=== PATIENT | male | born 1970 | race Caucasian/White ===

== ENCOUNTER 2017-06-12 21:49 | Emergency (ER) | payer OTHER ==
[2017-06-12 22:09] VITALS: TEMP 98.1
[2017-06-13 00:03] VITALS: RESP 16
[2017-06-13] MEDS ORDERED: DEXAMETHASONE SOD PHOSPHATE 10 MG/ML 1 ML VIAL IM STA (00:04)
[2017-06-13] MEDS ORDERED: ORPHENADRINE 30 MG/ML 2 ML VIAL IM STA (00:04)
[2017-06-13] MEDS ORDERED: HYDROmorphone 1 MG/ML 1 ML SYRINGE IM STA (00:04)
[2017-06-13 01:13] VITALS: BP 118/74; PULSE 71
--- NOTE | 2017-06-13 01:18 | ED ---
General Adult HPI - General Chief complaint: Headache Stated complaint: nerve pain Time Seen by Provider: 06/12/17 23:15 Source: patient Mode of arrival: ambulatory Limitations: no limitations - History of Present Illness Initial comments: This patient is a 46-year-old man who presents with complaint of radicular pain to both arms as well as headache. Patient states that these are both chronic problems but they have been flaring up worse than usual over the course of the past 1-2 weeks. The patient states that he has not been able to rest over the past 2-3 days due to the radicular arm pains. Patient relates that he had head injury seven years ago. Since that time he has had intermittent headaches. The patient has also had years of neck pain with radicular features. He most recently had an MRI in September. He subsequently had spinal injections and he states that he was better for a period of time. Beginning a month ago he had a recurrence of the radicular pain and that is gotten worse over the past 1-2 weeks. The pain is aching like a charley horse, constant, and severe. Certain positions make it worse. He has not found anything that helps. The patient has some tingling to the ulnar aspect of botht hands but no weakness. -: week(s) Location: upper extremity Quality: burning Consistency: constant Improves with: none Worsens with: movement Associated Symptoms: denies other symptoms - Related Data Home Medications Medication Instructions Recorded Confirmed Amitriptyline HCl [Elavil] 100 mg PO HS 03/11/14 01/15/16 Omeprazole [PriLOSEC] 1 cap PO AC-[id number] 03/14/14 01/15/16 Previous Rx's Medication Instructions Recorded Naproxen [Naprosyn] 500 mg PO Q12HR PRN #20 tab 01/15/16 Orphenadrine [Norflex] 100 mg PO Q12H PRN #15 tablet.er 01/15/16 traMADol HCl [Ultram] 50 mg PO Q4H PRN #15 tab 01/15/16 Methocarbamol [Robaxin-750] 750 mg PO TID PRN #30 tablet 06/13/17 predniSONE 60 mg PO DAILY #30 tab 06/13/17 Allergies Allergy/AdvReac Type Severity Reaction Status Date / Time No Known Allergies Allergy Verified 06/12/17 22:09 Review of Systems ROS Statement: Those systems with pertinent positive or pertinent negative responses have been documented in the HPI. ROS Other: All systems not noted in ROS Statement are negative. Constitutional: Denies: fever, chills, weakness Eyes: Denies: vision change Respiratory: Denies: cough, dyspnea Cardiovascular: Denies: chest pain Gastrointestinal: Denies: abdominal pain, vomiting Musculoskeletal: Denies: back pain Skin: Denies: rash, lesions Neurological: Reports: as per HPI, headache, paresthesias. Denies: weakness, numbness Past Medical History Additional Past Medical History / Comment(s): Blood in stool, nausea, loose stools, frequent emesis History of Any Multi-Drug Resistant Organisms: None Reported Past Surgical History: Orthopedic Surgery Additional Past Surgical History / Comment(s): ese knees arthroscopy, sinus sx Past Anesthesia/Blood Transfusion Reactions: No Reported Reaction Past Psychological History: Anxiety, PTSD Smoking Status: Never smoker Past Alcohol Use History: None Reported Past Drug Use History: None Reported General Exam Limitations: no limitations General appearance: alert, in no apparent distress Head exam: Present: atraumatic, normocephalic Eye exam: Present: normal appearance Neck exam: Present: normal inspection, full ROM. Absent: tenderness, meningismus Respiratory exam: Present: normal lung sounds bilaterally. Absent: respiratory distress, wheezes, rales, rhonchi, stridor Cardiovascular Exam: Present: regular rate, normal rhythm, normal heart sounds. Absent: systolic murmur, diastolic murmur, rubs, gallop Extremities exam: Present: normal inspection, normal capillary refill. Absent: pedal edema, calf tenderness Back exam: Present: normal inspection. Absent: vertebral tenderness Neurological exam: Present: alert, reflexes normal. Absent: motor sensory deficit Skin exam: Present: warm, dry, intact, normal color. Absent: rash Course Vital Signs 06/12/17 06/12/17 06/13/17 22:06 23:54 01:12 Temperature 98.1 F 98.1 F Pulse Rate 82 69 71 Respiratory 18 16 16 Rate Blood Pressure 117/67 117/63 118/74 O2 Sat by Pulse 95 99 95 Oximetry Medical Decision Making - Medical Decision Making Patient's 46-year-old man with history of chronic headaches and chronic radicular pain to the arm presents with exacerbation of the symptoms. He states he is mainly here about some pain relief so that he can get some sleep tonight. Patient is medicated and is feeling better. On the patient's exam there is no weakness. We discussed appropriate further care and follow-up, including return parameters. Discussed the patient probably needs repeat MRI as well as follow-up with the neurosurgeon and/or [employer]. Disposition Clinical Impression: Cervical radicular pain Disposition: HOME SELF-CARE Condition: Fair Instructions: Cervical Radiculopathy (ED) Prescriptions: Methocarbamol [Robaxin-750] 750 mg PO TID PRN #30 tablet PRN Reason: pain predniSONE 60 mg PO DAILY #30 tab Referrals: Javier Charlton DO [Primary Care Provider] - 1-2 days Seema Delgado DO [Doctor of Osteopathic Medicine] - 1-2 days Jack Navarro MD [STAFF PHYSICIAN] - 1-2 days
== END 2017-06-13 01:34 | disposition home or self-care (01) ==
LOC: EC 21:49
DX: M54.12 Radiculopathy, cervical region (principal); F41.9 Anxiety disorder, unspecified; M79.601 Pain in right arm; M79.602 Pain in left arm; Z79.899 Other long term (current) drug therapy
CPT/HCPCS: 99284; 96372 ×3; 93005; J1100; J2360; J1170

== ENCOUNTER → 2017-06-22 | Outpatient (CLI) | payer OTHER ==
--- NOTE | 2017-06-23 11:28 | MR ---
EXAMINATION TYPE: MR cervical spine wo con DATE OF EXAM: 06/22/2017 COMPARISON: 09/23/2016 HISTORY: Neck pain since 2010 TECHNIQUE: Multiplanar, multisequence images of the cervical spine were acquired. C2-C3: No evidence for degenerative disc disease. No disc bulge/herniation or protrusion. No Canal stenosis. Foramina are patent bilaterally. C3-C4: No evidence for degenerative disc disease. No disc bulge/herniation or protrusion. No Canal stenosis. Foramina are patent bilaterally. C4-C5: Uncovertebral joint hypertrophy on the left with mild left-sided foraminal encroachment. No Ca nal stenosis or disc herniation. C5-C6: Posterior circumferential disc bulging with mild effacement of thecal sac. Neural foramina rem ain patent. No Canal stenosis. No focal herniation. C6-C7: Bilateral uncovertebral joint hypertrophy. Uncovertebral joint hypertrophy with left paracentr al disc bulging is stable with no canal stenosis. Mild left foraminal encroachment. C7-T1: Right paracentral disc bulge or small protrusion appears stable with mild right-sided foramina l encroachment. No Canal stenosis. Neural foramina patent. Cervical segments are intact. There is normal alignment. Cervical spinal cord is of normal signal. Craniovertebral junction relationships are within normal limits. IMPRESSION: 1. Multilevel degenerative disc disease and disc bulging with no evidence of canal stenosis. Findings are stable from previous.
== END | disposition home or self-care (01) ==
LOC: RADMRIMAIN 15:02
PROVIDERS: ATTEND Family Medicine
DX: M50.222 Other cervical disc displacement at C5-C6 level (principal); M50.31 Other cervical disc degeneration, high cervical region
CPT/HCPCS: 72141

== ENCOUNTER → 2019-04-03 | Outpatient (CLI) | payer OTHER ==
--- NOTE | 2019-04-04 08:32 | XR ---
EXAMINATION TYPE: XR ankle complete RT DATE OF EXAM: 04/03/2019 COMPARISON: NONE HISTORY: Pain FINDINGS: Three views of the ankle demonstrate the ankle mortise to be intact and symmetric. The joint spaces are preserved. The osseous structures are intact. IMPRESSION: 1. No definite acute fracture or dislocation, if symptoms persist follow-up study in 7 to 10 days wou ld be suggested.
== END | disposition home or self-care (01) ==
LOC: RADXRYALE 16:32
PROVIDERS: ATTEND Family Medicine
DX: M25.571 Pain in right ankle and joints of right foot (principal)

== ENCOUNTER → 2019-04-21 | Outpatient (CLI) | payer OTHER ==
--- NOTE | 2019-04-21 18:23 | MR ---
EXAMINATION TYPE: MR ankle RT wo con DATE OF EXAM: 04/21/2019 COMPARISON: None HISTORY: Ankle pain for 5 months. Standard multiplanar, multisequence MRI departmental protocol Multiplanar, multisequence images of the right ankle were acquired. FINDINGS: Achilles tendon is intact. Plantar fascia appears intact. The medial and lateral flexor ten dons of the ankle appear intact. There is mild ankle joint effusion. Subtalar joint is intact. There is no evidence of a fracture. Collateral ligaments are intact. I see no focal bone destruction. There is no evidence of soft tissue mass. IMPRESSION: There is mild to moderate ankle joint effusion consistent with nonspecific synovitis. No fracture. No evidence of ligament or tendon tear.
== END | disposition home or self-care (01) ==
LOC: RADMRIMAIN 12:02
PROVIDERS: ATTEND Family Medicine
DX: M25.571 Pain in right ankle and joints of right foot (principal)

== ENCOUNTER 2019-09-19 06:36 | Emergency (ER) | payer OTHER ==
[2019-09-19] MEDS ORDERED: methylPREDNISolone SOD SUCCI 125 MG/2 ML VIAL IV STA (06:53)
--- NOTE | 2019-09-19 07:01 | ED ---
ENT HPI - General Chief complaint: ENT Stated complaint: KAREN Time Seen by Provider: 09/19/19 06:44 Source: patient, RN notes reviewed, old records reviewed Mode of arrival: wheelchair Limitations: no limitations - History of Present Illness Initial comments: Patient is a 48-year-old male, presents emergency department today with chief complaint of concern for swelling of his throat, and was coughing but unable to clear his throat. He felt that he was unable to breathe. Patient reports that he's had no fever. His symptoms started just when he woke up today. He reports that he is up-to-date on his vaccines. Denies any nausea or vomiting. - Related Data Home Medications Medication Instructions Recorded Confirmed Acetaminophen Tab [Tylenol Tab] 1,000 mg PO Q6HR PRN 09/19/19 09/19/19 Naproxen Sodium [Aleve] 440 mg PO BID PRN 09/19/19 09/19/19 Topiramate [Topamax] 50 mg PO HS 09/19/19 09/19/19 Previous Rx's Medication Instructions Recorded Azithromycin [Zithromax] 250 mg PO DIRECTED #6 tab 09/19/19 predniSONE 20 mg PO BID #10 tab 09/19/19 Allergies Allergy/AdvReac Type Severity Reaction Status Date / Time No Known Allergies Allergy Verified 09/19/19 08:48 Review of Systems ROS Statement: Those systems with pertinent positive or pertinent negative responses have been documented in the HPI. ROS Other: All systems not noted in ROS Statement are negative. Past Medical History Past Medical History: No Reported History Additional Past Medical History / Comment(s): Blood in stool, nausea, loose stools, frequent emesis History of Any Multi-Drug Resistant Organisms: None Reported Past Surgical History: Orthopedic Surgery Additional Past Surgical History / Comment(s): ese knees arthroscopy, sinus sx Past Anesthesia/Blood Transfusion Reactions: No Reported Reaction Past Psychological History: Anxiety, PTSD Smoking Status: Never smoker Past Alcohol Use History: None Reported Past Drug Use History: None Reported General Exam - General Exam Comments Initial Comments: 48-year-old male. Alert and oriented. No distress. Limitations: no limitations General appearance: alert, in no apparent distress Head exam: Present: atraumatic Eye exam: Present: normal appearance, PERRL, EOMI. Absent: scleral icterus, conjunctival injection, periorbital swelling ENT exam: Present: normal exam, mucous membranes moist, other (Patient has swelling of the uvula, erythema noted.) Neck exam: Present: normal inspection. Absent: tenderness, meningismus, lymphadenopathy Respiratory exam: Present: normal lung sounds bilaterally. Absent: respiratory distress, wheezes, rales, rhonchi, stridor Cardiovascular Exam: Present: regular rate, normal rhythm, normal heart sounds. Absent: systolic murmur, diastolic murmur, rubs, gallop, clicks Extremities exam: Present: normal inspection, full ROM, normal capillary refill. Absent: tenderness, pedal edema, joint swelling, calf tenderness Back exam: Present: normal inspection Neurological exam: Present: alert, oriented X3, CN II-XII intact Psychiatric exam: Present: normal affect, normal mood Skin exam: Present: warm, dry, intact, normal color. Absent: rash Course Vital Signs 09/19/19 09/19/19 09/19/19 06:41 08:09 08:20 Temperature 98.4 F Pulse Rate 75 60 76 Respiratory 18 Rate Blood Pressure 117/78 O2 Sat by Pulse 96 Oximetry 09/19/19 09/19/19 08:24 11:19 Temperature 97.2 F L 98.4 F Pulse Rate 77 Respiratory 22 18 Rate Blood Pressure 109/84 104/67 O2 Sat by Pulse 97 96 Oximetry Medical Decision Making - Medical Decision Making Is a 48-year-old male presents today with 1 morning of throat swelling. On exam Patient has evidence of uvulitis. Patient has some minimal erythema. Patient was given IV fluids, Solu-Medrol. Blood work up throat culture completed negative for any acute changes. Negative strep testing and heterophile. Soft tissue neck x-ray shows no evidence of epiglottitis. After Solu-Medrol Benadryl Pepcid he does have some improvement of the swelling. Discussed it could be ALLERGIC etiology versus infectious. In the meantime Patient will be discharged with prescription for steroids and I discussed that he can have antibiotics until throat culture is pending. Patient is agreeable to treatment plan will comply. Return parameters were discussed. - Lab Data Result diagrams: 09/19/19 06:55 09/19/19 06:55 Lab Results 09/19/19 09/19/19 09/19/19 Range/Units 06:50 06:55 06:55 WBC 6.4 (3.8-10.6) k/uL RBC 5.43 (4.30-5.90) m/uL Hgb 16.5 (13.0-17.5) gm/dL Hct 48.6 (39.0-53.0) % MCV 89.4 (80.0-100.0) fL MCH 30.4 (25.0-35.0) pg MCHC 34.0 (31.0-37.0) g/dL RDW 12.6 (11.5-15.5) % Plt Count 291 (150-450) k/uL Neutrophils % 62 % Lymphocytes % 22 % Monocytes % 6 % Eosinophils % 6 % Basophils % 1 % Neutrophils # 4.0 (1.3-7.7) k/uL Lymphocytes # 1.4 (1.0-4.8) k/uL Monocytes # 0.4 (0-1.0) k/uL Eosinophils # 0.4 (0-0.7) k/uL Basophils # 0.1 (0-0.2) k/uL Sodium 141 (137-145) mmol/L Potassium 4.1 (3.5-5.1) mmol/L Chloride 112 H (98-107) mmol/L Carbon Dioxide 20 L (22-30) mmol/L Anion Gap 9 mmol/L BUN 19 (9-20) mg/dL Creatinine 1.02 (0.66-1.25) mg/dL Est GFR (CKD-EPI)AfAm >90 (>60 ml/min/1.73 sqM) Est GFR (CKD-EPI)NonAf 86 (>60 ml/min/1.73 sqM) Glucose 106 H (74-99) mg/dL Calcium 9.2 (8.4-10.2) mg/dL Heterophile Antibody (Negative) Group A Strep Rapid Negative (Negative) 09/19/19 Range/Units 06:55 WBC (3.8-10.6) k/uL RBC (4.30-5.90) m/uL Hgb (13.0-17.5) gm/dL Hct (39.0-53.0) % MCV (80.0-100.0) fL MCH (25.0-35.0) pg MCHC (31.0-37.0) g/dL RDW (11.5-15.5) % Plt Count (150-450) k/uL Neutrophils % % Lymphocytes % % Monocytes % % Eosinophils % % Basophils % % Neutrophils # (1.3-7.7) k/uL Lymphocytes # (1.0-4.8) k/uL Monocytes # (0-1.0) k/uL Eosinophils # (0-0.7) k/uL Basophils # (0-0.2) k/uL Sodium (137-145) mmol/L Potassium (3.5-5.1) mmol/L Chloride (98-107) mmol/L Carbon Dioxide (22-30) mmol/L Anion Gap mmol/L BUN (9-20) mg/dL Creatinine (0.66-1.25) mg/dL Est GFR (CKD-EPI)AfAm (>60 ml/min/1.73 sqM) Est GFR (CKD-EPI)NonAf (>60 ml/min/1.73 sqM) Glucose (74-99) mg/dL Calcium (8.4-10.2) mg/dL Heterophile Antibody Negative (Negative) Group A Strep Rapid (Negative) - Radiology Data Radiology results: report reviewed Unremarkable airway of the soft tissue of the neck. Disposition Clinical Impression: Uvulitis Disposition: HOME SELF-CARE Condition: Good Instructions (If sedation given, give patient instructions): Uvulitis (ED) Additional Instructions: Vision should take the steroids and antibiotics as prescribed. Throat culture is pending. Patient can follow up with your nose and throat specialist. Take Benadryl as needed for swelling or any worsening symptoms throughout the day. Start steroids tomorrow. Prescriptions: predniSONE 20 mg PO BID #10 tab Azithromycin [Zithromax] 250 mg PO DIRECTED #6 tab Is patient prescribed a controlled substance at d/c from ED?: No Referrals: Javier Charlton DO [Primary Care Provider] - 1-2 days Wenceslao Parker DO [Doctor of Osteopathic Medicine] - 1-2 days Time of Disposition: 10:20
[2019-09-19 07:19] LABS: Basophils # (A) 0.1 k/uL (0-0.2); Basophils % (A) 1 %; Eosinophils # (A) 0.4 k/uL (0-0.7); Eosinophils % (A) 6 %; HCT 48.6 % (39.0-53.0); HGB 16.5 gm/dL (13.0-17.5); Lymphocytes # (A) 1.4 k/uL (1.0-4.8); Lymphocytes % (A) 22 %; MCH 30.4 pg (25.0-35.0); MCV 89.4 fL (80.0-100.0); Mean Platelet Volume 5.9; Monocytes # (A) 0.4 k/uL (0-1.0); Monocytes % (A) 6 %; Neutrophils % (A) 62 %; Platelet Count 291 k/uL (150-450); RBC 5.43 m/uL (4.30-5.90); RDW 12.6 % (11.5-15.5); WBC 6.4 k/uL (3.8-10.6)
[2019-09-19 07:30] LABS: African American GFR (CKD) >90 (>60 ml/min/1.73 sqM); Anion Gap 9 mmol/L; Blood Urea Nitrogen 19 mg/dL (9-20); Calcium 9.2 mg/dL (8.4-10.2); Carbon Dioxide 20 mmol/L (22-30); Chloride 112 mmol/L (98-107); Glucose 106 mg/dL (74-99); Potassium 4.1 mmol/L (3.5-5.1); Sodium 141 mmol/L (137-145)
--- NOTE | 2019-09-19 07:40 | XR ---
EXAMINATION TYPE: XR soft tissue neck DATE OF EXAM: 09/19/2019 COMPARISON: NONE HISTORY: Difficulty breathing and throat swelling. TECHNIQUE: Frontal and lateral views of the soft tissues of the neck. FINDINGS: Epiglottis is unremarkable. No prevertebral soft tissue swelling. Nasopharyngeal airway and oropharyngeal airway are patent. No subglottic narrowing. No radio opaque foreign body seen. IMPRESSION: Unremarkable x-ray of the soft tissues of the neck.
[2019-09-19] MEDS ORDERED: diphenhydrAMINE 50 MG/ML 1 ML VIAL IVP STA (07:44)
[2019-09-19] MEDS ORDERED: FAMOTIDINE 20 MG/2 ML VIAL IV STA (08:00)
[2019-09-19] MEDS ORDERED: RACEPINEPHRINE 2.25% NEB 0.5 ML NEBU INHALATION STA (08:00)
[2019-09-19 08:25] VITALS: PULSE 77
[2019-09-19 11:21] VITALS: BP 104/67; RESP 18; TEMP 98.4
== END 2019-09-19 11:19 | disposition home or self-care (01) ==
LOC: EC 06:36
DX: K12.2 Cellulitis and abscess of mouth (principal); Z79.899 Other long term (current) drug therapy
CPT/HCPCS: 36415; 94640; 80048; 85025; 86308; 87040; 87081; 87430; 70360; 99285; 96374; 96375 ×2; J1200; J2930

== ENCOUNTER → 2019-10-08 | Outpatient (CLI) | payer OTHER ==
--- NOTE | 2019-10-08 16:23 | XR ---
Left knee HISTORY: Left knee pain 3 views of left knee, correlation to prior exam dated 06/17/2016 Bone mineralization, joint spaces and alignment are maintained. IMPRESSION: No fracture or dislocation.
== END | disposition home or self-care (01) ==
LOC: RADXRYALE 14:13
PROVIDERS: ATTEND Physician Assistant Medical
DX: M25.562 Pain in left knee (principal)

== ENCOUNTER → 2019-12-11 | Outpatient (CLI) | payer OTHER ==
--- NOTE | 2019-12-11 16:50 | XR ---
Lumbar spine HISTORY: Back pain, right leg radiculopathy 3 views of the lumbar spine Lumbar vertebral bodies show preserved height. There is minimal retrolisthesis grade 1 at L4-5. Scler osis is present at posterior elements compatible with facet arthropathy. There is some loss of disc h eight L4-5, L5-S1. IMPRESSION: Suspect degenerative disc disease, facet arthropathy.
== END | disposition home or self-care (01) ==
LOC: RADXRYALE 16:20
PROVIDERS: ATTEND Family Medicine
DX: M54.41 Lumbago with sciatica, right side (principal); R20.2 Paresthesia of skin
CPT/HCPCS: 72100

== ENCOUNTER → 2020-05-14 | Outpatient (CLI) | payer OTHER ==
--- NOTE | 2020-05-14 13:16 | MR ---
EXAMINATION TYPE: MR knee LT wo con DATE OF EXAM: 05/14/2020 COMPARISON: 01/23/2016 HISTORY: Tear of meniscus, left knee TECHNIQUE: Multiplanar, multisequence images of the knee is performed without IV contrast. FINDINGS: MEDIAL MENISCUS: Chronic tear posterior horn medial meniscus. Anterior horn is intact. LATERAL MENISCUS: Anterior and posterior horns are intact without tear. CRUCIATE LIGAMENTS: The anterior and posterior cruciate ligaments are intact and unremarkable. COLLATERAL LIGAMENTS: The medial collateral ligament and lateral collateral ligament complex are inta ct and unremarkable. EXTENSOR MECHANISM: Visualized quadriceps and patellar tendons are intact. EFFUSION: No significant suprapatellar joint effusion. POPLITEAL CYST: No popliteal/díaz cyst. TRICOMPARTMENT SPACES: Narrowing patellofemoral joint space. CARTILAGE: Early chondromalacia patellar cartilage. BONE MARROW SIGNAL: Small area of focal bone contusion lateral femoral condyle anteriorly. OTHER: No additional significant abnormality is appreciated. IMPRESSION: 1.Chronic tear posterior horn medial meniscus. 2. 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 3. Small left focal bone contusion lateral femoral condyle.
== END | disposition home or self-care (01) ==
LOC: RADMRIMAIN 08:17
PROVIDERS: ATTEND Family Medicine
DX: S83.242A Other tear of medial meniscus, current injury, left knee, initial encounter (principal); M22.42 Chondromalacia patellae, left knee; S70.12XA Contusion of left thigh, initial encounter; S83.282D Other tear of lateral meniscus, current injury, left knee, subsequent encounter

== ENCOUNTER 2020-07-18 07:37 | Day surgery (SDC) | payer OTHER ==
[2020-07-16 11:06] VITALS: BMI 29.8
--- NOTE | 2020-07-17 09:07 | HP ---
HISTORY AND PHYSICAL CHIEF COMPLAINT: Left knee pain. HISTORY OF PRESENT ILLNESS: The patient is a 49-year-old varela who presents with progressive left knee pain for the past several months. He notes intermittent medial pain along with catching and giving way. He has tried injections in addition to therapy with minimal improvement. He notes it limits him. Currently he is off work. PAST MEDICAL HISTORY: Significant for anxiety/depression. PAST SURGICAL HISTORY: Significant for bilateral knee arthroscopy. CURRENT MEDICATIONS: Topamax. He denies drug allergies. FAMILY HISTORY: Unknown. SOCIAL HISTORY: Negative for current tobacco or alcohol use. 16 POINT REVIEW OF SYSTEMS: Otherwise reviewed and is noncontributory. PHYSICAL EXAMINATION: On examination, the patient is approximately 5 foot 6, 185 pounds of endomorphic habitus. HEENT: Exam is nonfocal. NECK: Supple. He has painless passive motion of his left hip. Straight leg raise is negative. Active motion left knee -8 to 130 degrees of flexion. He has a trace effusion. He is tender about the medial joint line. Collaterals are stable, He is negative, Bertrand's elicits medial pain. His distal neurovascular exam appears intact in the left lower extremity. Previous x-rays of the left knee obtained in the office shows moderate lateral compartment osteoarthrosis. IMPRESSION: 1. Left knee internal derangement with probable medial meniscal tear. 2. Left knee moderate lateral compartment osteoarthrosis. RECOMMENDATIONS: I talked to the patient at length regarding his condition along with treatment options. At this point, he is having persistent pain and mechanical symptoms despite conservative measures. After thorough discussion, he opts to proceed with surgery. We will plan to proceed with arthroscopic evaluation with possible partial medial meniscectomy. Risks and benefits were discussed at length in layman's terms. We will likely perform that as an outpatient procedure. MMODL / IJN: [id number] /
[~2020-07-18 07:37] MED LIST: DEXAMETHASONE SOD PHOSPHATE 10 MG/ML 1 ML VIAL IV ONE; LACTATED RINGERS 1,000 ML IV SCH; LIDOCAINE 1% (10MG/ML) FOR IV START INTRADERMA PRN; MIDAZOLAM 2 MG/2 ML VIAL IV PRN; ONDANSETRON 4 MG/2 ML VIAL IVP ONE; fentaNYL (PF) 50 MCG/ML 2 ML AMP IVP PRN
[2020-07-18] MEDS ORDERED: PROPOFOL 10 MG/ML 20 ML VIAL IV ONE (08:16)
[2020-07-18] MEDS ORDERED: MIDAZOLAM 2 MG/2 ML VIAL ONE (08:16)
[2020-07-18] MEDS ORDERED: HYDROmorphone (PF) 1 MG/ML ONE (08:16)
[2020-07-18] MEDS ORDERED: LIDOCAINE 1% INJ 10MG/ML (20 ML MDV) ONE (08:16)
[2020-07-18] MEDS ORDERED: fentaNYL (PF) 50 MCG/ML 2 ML AMP ONE (08:16)
--- NOTE | 2020-07-18 09:07 | P.OP ---
Date of Procedure: 07/18/20 Preoperative Diagnosis: Left knee internal derangement Postoperative Diagnosis: Left knee posterior lateral meniscal tear/grade 3 chondral injury central femoral trochlea Procedure(s) Performed: Left knee arthroscopic partial lateral meniscectomy/femoral trochlear chondroplasty/microfracture femoral trochlea Anesthesia: ROA Surgeon: Chucky Benitez Estimated Blood Loss (ml): 10 Pathology: none sent Condition: stable Disposition: PACU Indications for Procedure: Patient is a 49-year-old male presents with progressive left knee pain and mechanical symptoms despite conservative measures. A discussion of the risks and benefits of operative intervention versus continued conservative measures was made with patient. He opted to proceed with surgery. Operative risks to include infection, neurovascular injury, development of blood clots, possible incomplete resolution of symptoms, possible worsening symptoms and need for subsequent procedures was discussed. Informed consent was obtained. Operative Findings: As below Description of Procedure: The patient was brought to the operating room, and after induction of general anesthesia examined the left knee. Collaterals were stable, He was negative, and posterior drawer was negative. The left lower extremity was prepped and draped in a normal fashion. A superior lateral portal was made through a 3 mm skin incision superior and lateral to the patella. This was used for outflow. A lateral portal was made through a 5 mm vertical skin incision lateral to the patella tendon above the joint line. Diagnostic arthroscopy was performed. On inspection of the medial compartment, no significant meniscal or cartilage pathology was noted. On inspection of the notch, the anterior cruciate ligament appeared to be intact. On inspection of the lateral compar tment, a radial tear involving the posterior lateral meniscus was noted in the white-white junction. This was debrided back to stable base with motorized shaver and straight baskets. The remaining lateral meniscus was stable and intact. Grade 2-3 chondral changes were noted involving the posterior aspect of the lateral femoral condyle. On inspection of the patellofemoral articulation, a grade 3 chondral injury was noted involving the femoral trochlea and central portion. Was a loose chondral flap debrided back to stable base with a motorized shaver. Microfracture is performed with a power pik breaching the subchondral surface to the bone marrow elements. There is some chondral fibrillation of the lateral patella facet, however no loose chondral fragments were noted.. The gutters were clear debris. The knee was then thoroughly irrigated. The portals were closed with Steri-Strips. A sterile dressing was applied in addition to a compression stocking. The patient was awoken from general anesthesia and transferred to recovery room in good condition. Blood loss was estimated at 10 mL. No complications were incurred.
[2020-07-18 09:18] VITALS: TEMP 97.1
[2020-07-18 09:22] VITALS: RESP 16
[2020-07-18] MEDS: HYDROmorphone 0.5 MG/0.5 ML SYRINGE IVP PRN ×2 (09:40→09:55)
[2020-07-18] MEDS ORDERED: LACTATED RINGERS 1,000 ML IV ONE ×2 (09:49)
[2020-07-18] MEDS ORDERED: HYDROcodone/APAP 5-325MG 1 EACH TAB ONE (10:31)
[2020-07-18 11:30] VITALS: BP 135/89; PULSE 77
== END 2020-07-18 11:45 | disposition home or self-care (01) ==
LOC: OR 07:37
PROVIDERS: ATTEND Orthopaedic Surgery
DX: M23.252 Derangement of posterior horn of lateral meniscus due to old tear or injury, left knee (principal); M17.12 Unilateral primary osteoarthritis, left knee; F41.9 Anxiety disorder, unspecified; F32.9 Major depressive disorder, single episode, unspecified; Z79.899 Other long term (current) drug therapy; Z98.890 Other specified postprocedural states
CPT/HCPCS: 29881; 29879; J2250; J1100; J0690; J2405; J2001; J3010; J1170 ×2; J2704

== ENCOUNTER → 2020-09-01 | Outpatient (CLI) | payer OTHER | END | disposition home or self-care (01) | LOC: LABWHC1 15:27 | PROVIDERS: ATTEND Family Medicine | DX: Z20.828 Contact with and (suspected) exposure to other viral communicable diseases (principal) | CPT/HCPCS: U0003; C9803 ==

== ENCOUNTER → 2020-09-10 | Outpatient (CLI) | payer OTHER ==
--- NOTE | 2020-09-10 14:22 | MR ---
MRI CERVICAL SPINE: CLINICAL HISTORY: Neck pain per order. Headache with neck pain since 2011 causing pain or weakness in to both arms and fingers per patient. TECHNIQUE: Multiplanar, multisequence imaging of the cervical spine is performed without IV contrast. COMPARISON: MRI cervical spine June 22, 2017 and prior study 2016 cervical spine x-ray August 11, 2020. FINDINGS: Sagittal images of the cervical spine show the craniocervical junction to remain within nor mal limits. The cervical and upper thoracic spinal cord remains normal in course, caliber, and signa l. Slight grade 1 retrolisthesis C3 on C4 is now present. The vertebral body and intravertebral disk heights are fairly well maintained. The bone marrow signal intensity is within normal limits. Axial images at C2-C3 level and now show right-sided uncovertebral facet degenerative changes causing asymmetric mild to moderate right-sided neural foraminal narrowing Axial images at C3-C4 level show spondylolisthesis with mild posterior spur disc complex mildly effac ing the anterior thecal sac, patent bilateral neural foramina. Axial images at C4-C5 level shows uncovertebral facet degenerative changes bilaterally causing mild-t o-moderate bilateral neural foraminal narrowing. Axial images at C5-C6 levels with broad-based posterior disc protrusion effacing the anterior thecal sac and causing moderate right and mild left-sided neural foraminal narrowing. Axial images at C6-C7 level shows broad-based left central disc protrusion effacing anterior thecal s ac and causing mild to moderate left and mild right-sided neural foraminal narrowing. Axial images at C7-T1 level show right paracentral disc protrusion effacing ventral thecal sac, paten t bilateral neural foramina remain present. IMPRESSION: Multilevel degenerative changes with interval progression from prior MRI studies noted as detailed above.
== END ==
LOC: RADMRIMAIN 13:24
PROVIDERS: ATTEND Orthopaedic Surgery
DX: M48.02 Spinal stenosis, cervical region (principal); M47.812 Spondylosis without myelopathy or radiculopathy, cervical region; M43.12 Spondylolisthesis, cervical region; M50.222 Other cervical disc displacement at C5-C6 level; M50.23 Other cervical disc displacement, cervicothoracic region
CPT/HCPCS: 72141

== ENCOUNTER → 2021-03-13 | Outpatient (CLI) | payer OTHER ==
--- NOTE | 2021-03-13 13:50 | MR ---
EXAMINATION TYPE: MR shoulder LT wo con DATE OF EXAM: 03/13/2021 12:57 PM COMPARISON: NONE HISTORY: Pain in left shoulder TECHNIQUE: Multiplanar multispin echo imaging of the left shoulder was performed. FINDINGS: Rotator cuff : There is thickening and heterogeneity of the supraspinatus tendon compatible chronic t endinopathy. Small undersurface partial tear is noted at the critical zone without full-thickness tea r seen. The remaining constituents of the rotator cuff are within normal limits. Bursa: No bursal effusion or thickening is seen. Musculature: There is no muscular tear, contusion, or atrophy. Acromioclavicular joint : Lateral downsloping of the acromion with subacromial spur resulting in impi ngement. Moderate AC joint arthropathy. Osseous structures : There are no fractures or regions of abnormal bone marrow signal intensity. Long biceps tendon : The biceps tendon is normally situated within the bicipital groove. No complete or partial biceps tendon tear is present. Glenohumeral Joint fluid : There is no glenohumeral joint effusion. Cartilage and Bone : No focal hyaline cartilage defects are noted. No Hill-Sachs, reverse Hill-Sachs, or bony Bankart lesions are seen. Labrum : There are no SLAP or soft tissue Bankart lesions. No paralabral cysts are seen. OTHER FINDINGS : none IMPRESSION: 1. There is thickening and heterogeneity of the supraspinatus tendon compatible chronic tendinopathy. Small undersurface partial tear is noted at the critical zone without full-thickness tear seen.
== END | disposition home or self-care (01) ==
LOC: RADMRIMAIN 12:09
PROVIDERS: ATTEND Family Medicine
DX: M75.112 Incomplete rotator cuff tear or rupture of left shoulder, not specified as traumatic (principal); M67.814 Other specified disorders of tendon, left shoulder

== ENCOUNTER 2021-05-15 | Day surgery (SDC) | payer OTHER | END 2021-05-15 11:35 | disposition home or self-care (01) | CPT/HCPCS: 64415; 76942; 29823; 29824; J2250; J1100; J0690; J2405; J0171; J2001; J3010; J1170 ×2; J2795; J0330; J2704 ==

== ENCOUNTER 2022-02-19 08:19 | Day surgery (SDC) | payer OTHER ==
[2022-02-17 11:11] VITALS: BMI 30.7
--- NOTE | 2022-02-18 10:53 | HP ---
HISTORY AND PHYSICAL CHIEF COMPLAINT: Left shoulder pain and stiffness. HISTORY OF PRESENT ILLNESS: The patient is a 51-year-old unemployed male who presents with progressive left shoulder pain and stiffness for the past several months. He completed therapy with some relief; however, he has persistence of pain and stiffness. He underwent left shoulder arthroscopy in May of 2021. PAST MEDICAL HISTORY: Significant for depression. PAST SURGICAL HISTORY: Significant for bilateral knee arthroscopy along with left shoulder arthroscopy. CURRENT MEDICATIONS: Topamax and Tylenol. ALLERGIES: HE DENIES DRUG ALLERGIES. FAMILY HISTORY: Negative. SOCIAL HISTORY: Negative for current tobacco or alcohol use. REVIEW OF SYSTEMS: Sixteen-point review of systems otherwise reviewed and is noncontributory. PHYSICAL EXAMINATION: On examination, the patient is approximately 5 feet 6 inches, 182 pounds of endomorphic habitus. HEENT exam is nonfocal. Neck is supple. On examination of his left shoulder, he is tender about the anterior subacromial space. Active range of motion: Forward elevation 130 degrees, external rotation with the arm at side 20 degrees, internal rotation to L3. Passively I am able to forward-elevate him to 130 degrees. Motor strength 5/5 for abduction and external rotation with the arm at the side. Impingement test is positive. His distal neurovascular exam appears intact in the left upper extremity. IMPRESSION: 1. Left shoulder adhesive capsulitis. 2. Status post left shoulder arthroscopic subacromial decompression and rotator cuff debridement. RECOMMENDATIONS: I talked to the patient at length regarding his condition along with treatment options. At this point he remains quite stiff and symptomatic despite conservative measures. After thorough discussion, he opts to proceed with manipulation under anesthesia. We will have him start his Medrol Dosepak directly after the procedure. We will likely perform that as an outpatient procedure utilizing IV sedation. MMODL / IJN: [id number] /
[~2022-02-19 08:19] MED LIST changes: -DEXAMETHASONE SOD PHOSPHATE 10 MG/ML 1 ML VIAL IV ONE; +DEXAMETHASONE SOD PHOSPHATE 4 MG/ML 1 ML VIAL IV ONE; -fentaNYL (PF) 50 MCG/ML 2 ML AMP IVP PRN
[2022-02-19 09:24] VITALS: TEMP 98
[2022-02-19] MEDS ORDERED: PROPOFOL 10 MG/ML 20 ML VIAL IV ONE (09:25)
[2022-02-19] MEDS ORDERED: fentaNYL (PF) 50 MCG/ML 2 ML AMP ONE (09:25)
[2022-02-19] MEDS ORDERED: LACTATED RINGERS 1,000 ML IV ONE (09:40)
[2022-02-19] MEDS: HYDROmorphone 0.5 MG/0.5 ML SYRINGE IVP PRN ×2 (09:49→10:02)
[2022-02-19] MEDS ORDERED: KETOROLAC 15 MG/ML 1 ML VIAL IVP ONE (09:49)
--- NOTE | 2022-02-19 09:49 | P.OP ---
Date of Procedure: 02/19/22 Preoperative Diagnosis: Left shoulder adhesive capsulitis Postoperative Diagnosis: Same Procedure(s) Performed: Manipulation under anesthesia left shoulder Anesthesia: MAC Surgeon: Chucky Benitez Estimated Blood Loss (ml): 0 Pathology: none sent Condition: stable Disposition: PACU Indications for Procedure: The patient's a 51-year-old male who presents after left shoulder arthroscopy with persistent stiffness despite adequate rehabilitation. A discussion the risks and benefits of manipulation under anesthesia made with patient. He opted to proceed. Risks of this procedure to include fracture, tendon rupture, possible recurrence of stiffness and need for subsequent procedures was discussed. Informed consent was obtained. Operative Findings: As below Description of Procedure: The patient was brought to the recovery room, and after induction of IV sedation the left shoulder was then gently manipulated. First obtain full external rotation with the arm at side. Moderate adhesions were encountered. I then obtained full forward elevation. Again moderate adhesions were encountered. The patient was monitored until fully weight. There was no blood loss. No complications were incurred.
[2022-02-19 10:24] VITALS: RESP 18
[2022-02-19 10:40] VITALS: BP 130/74; PULSE 78
== END 2022-02-19 10:53 | disposition home or self-care (01) ==
LOC: OR 08:19
PROVIDERS: ATTEND Orthopaedic Surgery
DX: M75.02 Adhesive capsulitis of left shoulder (principal); F32.A Depression, unspecified
CPT/HCPCS: 23700; J1100; J2405; J3010; J1885; J2704; J1170

== ENCOUNTER → 2022-10-11 | Outpatient (CLI) | payer OTHER ==
--- NOTE | 2022-10-11 12:57 | XR ---
EXAMINATION TYPE: XR knee complete LT DATE OF EXAM: 10/11/2022 CLINICAL HISTORY: 51-year-old male complaining of left knee pain. TECHNIQUE: Three views of the left knee are obtained. COMPARISON: None. FINDINGS: There is no acute fracture/dislocation evident in the left knee. The tri-compartment join t spaces appear within normal limits. The overlying soft tissue appears unremarkable. IMPRESSION: There is no acute fracture or dislocation in the left knee.
== END | disposition home or self-care (01) ==
LOC: RADXRYALE 10:44
PROVIDERS: ATTEND Family Medicine
DX: M25.562 Pain in left knee (principal)

== ENCOUNTER → 2023-12-14 | Outpatient (CLI) | payer OTHER ==
--- NOTE | 2023-12-14 15:52 | MR ---
EXAMINATION TYPE: MR cervical spine wo con DATE OF EXAM: 12/14/2023 COMPARISON: 09/10/2020 HISTORY: 52-year-old male M54.2, cervicalgia, Neck pain, headaches, hx head injury. TECHNIQUE: Multiplanar, multisequence images of the cervical spine were acquired without contrast. FINDINGS: No craniocervical junction anomaly, predental space widening, or prevertebral soft tissue swelling. Mild multilevel degenerative disc desiccation and mild disc bulging throughout the cervical spine. Straightening of the normal cervical lordosis bone alignment. Mild heterogeneous marrow signal but without suspicious bone marrow placement. Minimal posterior bulging disks impress on the ventral thecal sac dimensions and C5-C6 and C6/C7 but without any significant spinal canal stenosis or cord compression. Normal course and signal intensity of the cervical spinal cord. Scattered uncovertebral joint and facet arthropathy lower cervical spine. At C2-C3, changes result in mild right neuroforaminal stenosis. At C3-C4, mild right neuroforaminal stenosis. At C5-C6, moderate right neuroforaminal stenosis. At C6/7, mild left neuroforaminal stenosis. No prevertebral paravertebral soft tissue abnormality seen. IMPRESSION: 1. Redemonstrated mild multilevel degenerative disc disease with variable disc desiccation and minima l posterior disc bulging. 2. No large focal disc herniation or significant spinal canal stenosis. 3. Scattered facet and uncovertebral joint arthropathy resulting in variable mild neuroforaminal narr owing as outlined above. Moderate on the right at C5-C6.
== END | disposition home or self-care (01) ==
LOC: RADMRIMAIN 10:43
PROVIDERS: ATTEND Family Medicine
DX: M47.812 Spondylosis without myelopathy or radiculopathy, cervical region (principal)
CPT/HCPCS: 72141

== ENCOUNTER → 2024-01-30 | Outpatient (CLI) | payer OTHER ==
--- NOTE | 2024-01-30 13:23 | P.PAINPG ---
PQRS Measure Charge Sheet Comment: HISTORY OF PRESENT ILLNESS: A 53 yr old male as a referral from the [facility] presents today w severe and chronic neck pain x 3 mo secondary to DDD, spondylosis and facet arthropathy without myelopathy for evaluation. Pt states pain level is provoked at 6 /10 in intensity, constant, localized in the lower cervical spine, predominantly axial, dull in character w occasional shooting pain towards the hands. Pain is provoked by laying supine. Pain is alleviated by PT x 5 wks which he is currently in, chiropractic treatments monthly x 4 mo which he is currently in, heat, medications (Tyl), repositioning and rest. Cervical disability score at 22. PMH: OA, GERD, Anxiety/ PTSD PSH: [facility] (2020), L Shoulder Arthroscopy x2, BL Knee Arthroplasty, Sinus Surgery SH: Never smoker, No ETOH abuse, No illicit drug use FH: Non contributory All: See list Meds: See list REVIEW OF ORGAN SYSTEMS: CONSTITUTIONAL: No fevers or chills. No recent weight loss. NEUROLOGICAL: + numbness and tingling along the distal extremities. No seizure disorders or headaches. MUSCULOSKELETAL: + pain PSYCHIATRIC: Denies current depression or suicidal thoughts. Physical Examinations : Constitutional : Cooperative , not in acute distress . Neurologic : Cranial nerve II to XII intact. No focal neurological deficits. Psychiatric : alert & oriented x 3. Matching mood & appropriate affect. Judgment & insight intact. Musculoskeletal : Cervical Spine Motor strength in the deltoid and biceps: Normal right side. Normal Left side Motor strength biceps and the wrist extensors: Normal right side . Normal left side Motor strength in the triceps muscle: Normal right side. Normal left side Deep tendon reflexes: Normal at the biceps. Normal at Brachioradialis. Normal at triceps Vertebral body tenderness to deep palpation over Cervical facet loading test: positive bilaterally Spurling test: positive bilaterally Neck distraction test: positive bilaterally Yossi sign: positive bilaterally Lumbar spine Motor strength lower extremities ,thigh and legs 5/5 Right side , 5/5 Left side Deep tendon reflexes : Normal Knee Jerk. Normal Ankle Jerk Vertebral body tenderness over C6 Cunningham Test positive BL C6-C7 Lumbar facet Loading Test: positive Right / positive Left Range of motion of the lumbar spine Flexion 30 degrees, extension 10 degrees Straight Leg Raise test: Left/ Right positive at degree Fer test: positive right / positive left. Severe tenderness over the Sacroiliac joint on the Right / Left sides Gaenslen test: positive bilaterally Seated flexion test: positive bilaterally. Sacral spine : Severe tenderness over the Sacroiliac joint: right side / left side Range of motion: Flexion of the lumbar spine <60 degrees Range of motion: Extension of the lumbar spine <20 degrees Gaenslen's Test positive Fer test: positive right side / left side Thigh Thrust Test Sacral Thrust Test Imaging: MRI noncontrast of the cervical spine from 12/14/2023 reviewed Assessment/ Plan : Cervical DDD Recommendation o f BL TFESI C6-C7 #1. May need a series of injections for optimal pain relief. Risks, benefits of procedure discussed and patient verbalized understanding. Admits to anti- coagulant use or medical history of diabetes. Protocol for discontinuation/ continuation of medications makenzie procedure discussed. Minimal anesthesia provided, if clinically indicated, consisting of Versed and Fentanyl. All questions answered. I have spent greater than 30 minutes on patient care today. Dr Navarro was available by phone for the evaluation of this patient. The time was used to review the medical records including relevant urine studies and Prescription history (MAPs), review of the available imaging, evaluation and examination of the patient, coordination of care with the medical staff and if applicable referring physicians, as well as creation of the medical record - Pain Location Bilateral Neck Non-Pharmacological Interventions: Inactivity, Position/Reposition Pharmacological Interventions: PRN Medication PQRS Narrative: Smoking Status Never smoker Home Medications: Ambulatory Orders Topiramate [Topamax] 50 mg PO HS 09/19/19 Amoxic-Pot Clav 875-125Mg [Augmentin 875-125] 1 tab PO BID 02/17/22 HYDROcodone/APAP 5-325MG [Belden 5-325] 1 tab PO Q6HR PRN #18 tab 02/19/22 diazePAM [Valium] 5 mg PO DAILY PRN 1 Days #2 tab 01/30/24 Controlled Substance Measures - Controlled Substance Measures Is patient prescribed a controlled substance at discharge?: Yes When asked, does pt state using other controlled substances?: No If prescribed controlled substance>3 days was MAPS reviewed?: Prescribed <3 Days
[2024-01-30 13:27] VITALS: BP 127/84; PULSE 78; RESP 15; TEMP 98.6
== END ==
LOC: PNWHC3 12:40
PROVIDERS: ATTEND Specialist
DX: M50.323 Other cervical disc degeneration at C6-C7 level (principal); M19.90 Unspecified osteoarthritis, unspecified site
CPT/HCPCS: 99211

== ENCOUNTER → 2024-02-15 | Outpatient (CLI) | payer OTHER ==
--- NOTE | 2024-02-16 10:34 | MR ---
EXAMINATION TYPE: MR brain and iac wo/w con DATE OF EXAM: 02/15/2024 COMPARISON: 05/19/2012 HISTORY: Dizziness, right sided headaches, issues with hearing. Pt has hx of right sided head trauma . CONTRAST: Performed utilizing 9 mL intravenous Gadavist gadolinium contrast. TECHNIQUE: Multiplanar, multiecho imaging on a 3.0 Nadege magnet is performed through the brain. Atte ntion is paid to the internal auditory canals with thin section imaging. Postcontrast imaging is per formed through the internal auditory canals. FINDINGS:Craniovertebral junction is normal. The pituitary is normal. Diffusion-weighted imaging is performed. No suspicious hyperintensity is present to suggest an acute intracranial infarct or acute ischemic area. No significant signal changes through the brain are evident. Ventricles and sulci appear appropriate for the patient's age. Thin section imaging is performed through the internal auditory canals and cerebellar pontine angles. No cerebellar pontine angle masses are evident. The internal auditory canals appear normal without expansion or erosion. There is a vascular structure superior to the right internal artery canal. No contact with the seventh 8th nerve complex is evident however. Petrous ridges and semicircular canals as visualized appear unremarkable Postcontrast imaging was performed. No suspicious enhancement is evident within the internal audito ry canals or the included portions of the brain. IMPRESSION: 1. No internal auditory canal abnormality.
== END | disposition home or self-care (01) ==
LOC: RADMRIMAIN 12:15
DX: H81.91 Unspecified disorder of vestibular function, right ear (principal); R51.9 Headache, unspecified
CPT/HCPCS: 70553; A9585

== ENCOUNTER 2024-02-23 12:09 | Day surgery (SDC) | payer OTHER ==
[2024-02-21 12:29] VITALS: BMI 32.4
[~2024-02-23 12:09] MED LIST changes: -DEXAMETHASONE SOD PHOSPHATE 4 MG/ML 1 ML VIAL IV ONE; -LIDOCAINE 1% (10MG/ML) FOR IV START INTRADERMA PRN; -MIDAZOLAM 2 MG/2 ML VIAL IV PRN; -ONDANSETRON 4 MG/2 ML VIAL IVP ONE
[2024-02-23 12:59] VITALS: RESP 16; TEMP 97.9
[2024-02-23] MEDS ORDERED: IOPAMIDOL M200 10 ML VIAL ONE (13:54)
[2024-02-23] MEDS ORDERED: DEXAMETHASONE SOD PHOSPHATE 10 MG/ML 1 ML VIAL ONE (13:54)
--- NOTE | 2024-02-23 14:16 | P.PCN ---
Date of Procedure: 02/23/24 Procedure(s) Performed: PREOPERATIVE DIAGNOSIS: 1-Cervical radiculopathy . 2-cervical degenerative disc disease. 3-cervical spondylosis with cervical facet arthropathy POSTOPERATIVE DIAGNOSIS: Same as preoperative diagnoses. PROCEDURE 1. Transforaminal epidural steroid injection under fluoroscopic guidance at bilateral C6-7 level. (Fluoroscopy images stored on file in the radiology Department ) 2-cervical epidurogram. ANESTHESIA: Local with 1% lidocaine 3 ml . EBL: Minimal PROCEDURE INDICATION: The patient with severe neck pain and radiculopathy to the upper extremity , the symptoms unresponsive to conservative treatment. PROCEDURE DESCRIPTION / TECHNIQUE: The patient was seen and identified in the preoperative area. Risks, benefits, complications, and alternatives were discussed with the patient. The patient a greed to proceed with the procedure and signed the consent. IV was started, and vital signs were stable. Patient was taken to the OR and time out was completed. The patient was placed in the Lateral position on procedure table ( right side up ). The cervical area was prepped and draped in the usual sterile fashion. Critical pause was taken. Vital signs were closely monitored during the procedure. Using oblique fluoroscopy, the Right C6-7 level was identified, in the lateral view , the skin and deeper tissues just below was localized with 1% lidocaine. Subsequently, a 22-gauge 3.5-inch spinal needle was advanced under a tunneled view fluoroscopic guidance just underneath the foraminotomy of at the right C6-7 Under lateral fluoroscopy, the needle was then advanced to the posterior border of the interforaminal space. After negative aspiration of CSF and blood and with no paresthesias, 1 mL Isovue 200 contrast dye was injected excellent epidurogram , 1 mL of block solution containing 10 mg Dexamethasone PF was injected. Needle was removed , the exact same procedure was repeated for the left side and I did the left side transforaminal at C6-7 level. At the end of the procedure, skin was cleansed, and bandages were applied. COMPLICATIONS:none DISPOSITION / PLANS: The patient was placed in a supine position and transferred to the recovery area in a stable condition for observation. There was no evidence of lower extremity motor or sensory deficit after the procedure. Patient was discharged from the recovery room after meeting discharge criteria. Home discharge instructions were given to the patient by the staff. The patient was reexamined prior to discharge. note= patient was scheduled to have bilateral transforaminal epidural steroid injection at C6-7 in the preop holding area patient reported that he has no pain on the left side and only his pain on the right side for this reason we did the right side transforaminal steroid injection at C6-7 carlin
--- NOTE | 2024-02-23 14:24 | FL ---
EXAMINATION TYPE: FL guided pain mgmt statistic DATE OF EXAM: 02/23/2024 HISTORY: Fluoroscopy time Total dose area product (DAP) in uGy*m?, mGy*cm? (or similar): 0.76421 IMPRESSION: 1. Fluoroscopy time.
[2024-02-23 15:02] VITALS: BP 114/72; PULSE 86
== END 2024-02-23 14:48 | disposition home or self-care (01) ==
LOC: ORPAIN 12:09
PROVIDERS: ATTEND Specialist
DX: M50.123 Cervical disc disorder at C6-C7 level with radiculopathy (principal); M47.22 Other spondylosis with radiculopathy, cervical region
CPT/HCPCS: 64479; J1100; Q9966; 64483

== ENCOUNTER → 2024-03-29 | Outpatient (CLI) | payer OTHER ==
--- NOTE | 2024-03-29 14:44 | P.PAINPG ---
PQRS Measure Charge Sheet Comment: HISTORY OF PRESENT ILLNESS: A 53 yr old male presents today w severe and chronic neck pain x 3 mo secondary to DDD, spondylosis and facet arthropathy without myelopathy for evaluation s/p BL TFESI C6-C7 #1. Pt states he experienced 70 % pain relief x 5 wks s/p procedure. Pt states pain level is provoked at 3 /10 in intensity, constant, localized in the lower cervical spine, predominantly axial, dull in character w occasional shooting pain towards the hands. Pain is provoked by laying supine. Pain is alleviated by PT x 5 wks which he is currently in, chiropractic treatments monthly x 4 mo which he is currently in, heat, medications, repositioning and rest. Cervical disability score at 22. Interventional procedures include BL TFESI C6-C7 x1 Medications include Tyl REVIEW OF ORGAN SYSTEMS: CONSTITUTIONAL: No fevers or chills. No recent weight loss. NEUROLOGICAL: + numbness and tingling along the distal extremities. No seizure disorders or headaches. MUSCULOSKELETAL: + pain PSYCHIATRIC: Denies current depression or suicidal thoughts. Physical Examinations : Constitutional : Cooperative , not in acute distress . Neurologic : Cranial nerve II to XII intact. No focal neurological deficits. Psychiatric : alert & oriented x 3. Matching mood & appropriate affect. Judgment & insight intact. Musculoskeletal : Cervical Spine Motor strength in the deltoid and biceps: Normal right side. Normal Left side Motor strength biceps and the wrist extensors: Normal right side . Normal left side Motor strength in the triceps muscle: Normal right side. Normal left side Deep tendon reflexes: Normal at the biceps. Normal at Brachioradialis. Normal at triceps Vertebral body tenderness to deep palpation over Cervical facet loading test: positive bilaterally Spurling test: positive bilaterally Neck distraction test: positive bilaterally Yossi sign: positive bilaterally Lumbar spine Motor strength lower extremities ,thigh and legs 5/5 Right side , 5/5 Left side Deep tendon reflexes : Normal Knee Jerk. Normal Ankle Jerk Vertebral body tenderness over C6 Cunningham Test positive BL C6-C7 Lumbar facet Loading Test: positive Right / positive Left Range of motion of the lumbar spine Flexion 30 degrees, extension 10 degrees Straight Leg Raise test: Left/ Right positive at degree Fer test: positive right / positive left. Severe tenderness over the Sacroiliac joint on the Right / Left sides Gaenslen test: positive bilaterally Seated flexion test: positive bilaterally. Sacral spine : Severe tenderness over the Sacroiliac joint: right side / left side Range of motion: Flexion of the lumbar spine <60 degrees Range of motion: Extension of the lumbar spine <20 degrees Gaenslen's Test positive Fer test: positive right side / left side Thigh Thrust Test Sacral Thrust Test Imaging: MRI noncontrast of the cervical spine from 12/14/2023 reviewed Assessment/ Plan : Cervical DDD Will manage residual pain and may RTC on an as needed basis. All questions answered. I have spent greater than 30 minutes on patient care today. Dr Navarro was available by phone for the evaluation of this patient. The time was used to review the medical records including relevant urine studies and Prescription history (MAPs), review of the available imaging, evaluation and examination of the patient, coordination of care with the medical staff and if applicable referring physicians, as well as creation of the medical record PQRS Narrative: Smoking Status Never smoker Hx Alcohol Use (MH) No Home Medications: Ambulatory Orders Topiramate [Topamax] 50 mg PO HS 09/19/19 HYDROcodone/APAP 5-325MG [[place]ingus 5-325] 1 tab PO Q6HR PRN #18 tab 02/19/22 diazePAM [Valium] 5 mg PO DAILY PRN 1 Days #2 tab 01/30/24 Controlled Substance Measures - Controlled Substance Measures Is patient prescribed a controlled substance at discharge?: No
[2024-03-29 15:07] VITALS: BP 111/78; PULSE 83; RESP 15; TEMP 98.1
== END ==
LOC: PNWHC3 14:05
PROVIDERS: ATTEND Specialist
DX: M47.812 Spondylosis without myelopathy or radiculopathy, cervical region (principal); M50.30 Other cervical disc degeneration, unspecified cervical region
CPT/HCPCS: 99211

== ENCOUNTER → 2024-08-01 | Outpatient (CLI) | payer OTHER ==
[2024-08-01 09:53] VITALS: BP 123/85; PULSE 80; RESP 18
--- NOTE | 2024-08-01 14:42 | P.PAINPG ---
PQRS Measure Charge Sheet Comment: HISTORY OF PRESENT ILLNESS: A 53 yr old male presents today w severe and chronic neck pain x 3 mo secondary to DDD, spondylosis and facet arthropathy without myelopathy for evaluation. Pt states pain level is provoked at /10 in intensity, constant, localized in the lower cervical spine, predominantly axial, dull in character w occasional shooting pain towards the hands. Pain is provoked by laying supine. Pain is alleviated by PT x 6 wks which ended in March 2024, chiropractic treatments monthly x 4 mo which he is currently in, heat, medications, repositioning and rest. Interventional procedures include BL TFESI C6-C7 x1 Medications include Tyl REVIEW OF ORGAN SYSTEMS: CONSTITUTIONAL: No fevers or chills. No recent weight loss. NEUROLOGICAL: + numbness and tingling along the distal extremities. No seizure disorders or headaches. MUSCULOSKELETAL: + pain PSYCHIATRIC: Denies current depression or suicidal thoughts. Physical Examinations : Constitutional : Cooperative , not in acute distress . Neurologic : Cranial nerve II to XII intact. No focal neurological deficits. Psychiatric : alert & oriented x 3. Matching mood & appropriate affect. Judgment & insight intact. Musculoskeletal : Cervical Spine Motor strength in the deltoid and biceps: Normal right side. Normal Left side Motor strength biceps and the wrist extensors: Normal right side . Normal left side Motor strength in the triceps muscle: Normal right side. Normal left side Deep tendon reflexes: Normal at the biceps. Normal at Brachioradialis. Normal at triceps Vertebral body tenderness to deep palpation over Cervical facet loading test: positive bilaterally Spurling test: positive bilaterally Neck distraction test: positive bilaterally Yossi sign: positive bilaterally Lumbar spine Motor strength lower extremities ,thigh and legs 5/5 Right side , 5/5 Left side Deep tendon reflexes : Normal Knee Jerk. Normal Ankle Jerk Vertebral body tenderness over C6 Cunningham Test positive L > R C6-C7 Lumbar facet Loading Test: positive Right / positive Left Range of motion of the lumbar spine Flexion 30 degrees, extension 10 degrees Straight Leg Raise test: Left/ Right positive at degree Fer test: positive right / positive left. Severe tenderness over the Sacroiliac joint on the Right / Left sides Gaenslen test: positive bilaterally Seated flexion test: positive bilaterally. Sacral spine : Severe tenderness over the Sacroiliac joint: right side / left side Range of motion: Flexion of the lumbar spine <60 degrees Range of motion: Extension of the lumbar spine <20 degrees Gaenslen's Test positive Fer test: positive right side / left side Thigh Thrust Test Sacral Thrust Test Imaging: MRI noncontrast of the cervical spine from 12/14/2023 reviewed Assessment/ Plan : Cervical radiculopathy Recommendation of DEWEY TFESI C6-C7 #2. Risks, benefits of procedure discussed and patient verbalized understanding. Minimal anesthesia including Fentanyl and Versed if clinically indicated. All questions answered. I have spent greater than 30 minutes on patient care today. Dr Navarro was available by phone for the evaluation of this patient. The time was used to review the medical records including relevant urine studies and Prescription history (MAPs), review of the available imaging, evaluation and examination of the patient, coordination of care with the medical staff and if applicable referring physicians, as well as creation of the medical record PQRS Narrative: Smoking Status Never smoker Hx Alcohol Use (MH) No Home Medications: Ambulatory Orders Topiramate [Topamax] 50 mg PO HS 09/19/19 HYDROcodone/APAP 5-325MG [[place] 5-325] 1 tab PO Q6HR PRN #18 tab 02/19/22 diazePAM [Valium] 5 mg PO DAILY PRN 1 Days #2 tab 01/30/24 Controlled Substance Measures - Controlled Substance Measures Is patient prescribed a controlled substance at discharge?: No
== END ==
LOC: PNWHC3 09:01
PROVIDERS: ATTEND Specialist
DX: M54.12 Radiculopathy, cervical region
CPT/HCPCS: 99211

== ENCOUNTER 2024-08-23 06:51 | Day surgery (SDC) | payer OTHER ==
[2024-08-14 10:36] VITALS: BMI 32.9
[2024-08-23 07:22] VITALS: RESP 16; TEMP 97.2
[2024-08-23] MEDS: IV FLUID CONTINUATION 1,000 ML IV ONE ×2 (07:32→08:49)
[2024-08-23] MEDS: LACTATED RINGERS 1,000 ML IV SCH (07:33)
[2024-08-23] MEDS ORDERED: fentaNYL (PF) 50 MCG/ML 2 ML AMP ONE (08:20)
[2024-08-23] MEDS ORDERED: DEXAMETHASONE SOD PHOSPHATE 10 MG/ML 1 ML VIAL ONE (08:20)
[2024-08-23] MEDS ORDERED: IOPAMIDOL M200 10 ML VIAL ONE (08:20)
[2024-08-23] MEDS ORDERED: MIDAZOLAM 2 MG/2 ML VIAL ONE (08:20)
--- NOTE | 2024-08-23 08:45 | P.PCN ---
Date of Procedure: 08/23/24 Procedure(s) Performed: PREOPERATIVE DIAGNOSIS: 1-Cervical radiculopathy . 2-cervical degenerative disc disease. 3-cervical spondylosis with cervical facet arthropathy POSTOPERATIVE DIAGNOSIS: Same as preoperative diagnoses. PROCEDURE 1. Transforaminal epidural steroid injection under fluoroscopic guidance at bilateral C6-7 level. (Fluoroscopy images stored on file in the radiology Department ) 2-cervical epidurogram. ANESTHESIA: Moderate sedation with Versed 2 mg and fentanyl 50 mcg, (sedation started at 0820, end at 0840 ) EBL: Minimal PROCEDURE INDICATION: The patient with severe neck pain and radiculopathy to the upper extremity , the symptoms unresponsive to conservative treatment. PROCEDURE DESCRIPTION / TECHNIQUE: The patient was seen and identified in the preoperative area. Risks, benefits, complications, and alternatives were discussed with the patient. The patient agreed to proceed with the procedure and signed the consent. IV was started, and vital signs were stable, sedation was used to decrease patient's anxiety. Patient was taken to the OR and time out was completed. The patient was placed in the Lateral position on procedure table ( right side up ). The cervical area was prepped and draped in the usual sterile fashion. Critical pause was taken. Vital signs were closely monitored during the procedure. Using oblique fluoroscopy, the Right C6-7 level was identified, in the lateral view , the skin and deeper tissues just below was localized with 1% lidocaine. Subsequently, a 22-gauge 3.5-inch spinal needle was advanced under a tunneled view fluoroscopic guidance just underneath the foraminotomy of at the right C6-7 Under lateral fluoroscopy, the needle was then advanced to the posterior border of the interforaminal space. After negative aspiration of CSF and blood and w ith no paresthesias, 1 mL Isovue 200 contrast dye was injected excellent epidurogram , 1 mL of block solution containing 10 mg Dexamethasone PF was injected. Needle was removed , the exact same procedure was repeated for the left side and I did the left side transforaminal at C6-7 level. At the end of the procedure, skin was cleansed, and bandages were applied. COMPLICATIONS:none DISPOSITION / PLANS: The patient was placed in a supine position and transferred to the recovery area in a stable condition for observation. There was no evidence of lower extremity motor or sensory deficit after the procedure. Patient was discharged from the recovery room after meeting discharge criteria. Home discharge instructions were given to the patient by the staff. The patient was reexamined prior to discharge. note= patient was scheduled to have bilateral transforaminal epidural steroid injection at C6-7 in the preop holding area patient reported that he has no pain on the left side and only his pain on the right side for this reason we did the right side transforaminal steroid injection at C6-7 carlin
[2024-08-23 08:51] VITALS: PULSE 72
[2024-08-23 09:05] VITALS: BP 141/72
--- NOTE | 2024-08-23 11:19 | FL ---
EXAMINATION TYPE: FL guided pain mgmt statistic DATE OF EXAM: 08/23/2024 FLUOROSCOPY Bilateral cervical injection with Al Delvis 15.3 sec fluoro time .[id number] DAP LC 4 images saved [facility], , 08/23/2024 11:16 AM
== END 2024-08-23 09:28 | disposition home or self-care (01) ==
LOC: ORPAIN 06:51
PROVIDERS: ATTEND Specialist
DX: M54.12 Radiculopathy, cervical region
CPT/HCPCS: 64479; 99152

== ENCOUNTER → 2024-09-24 | Outpatient (CLI) | payer OTHER ==
[2024-09-24 11:35] VITALS: BP 118/81; PULSE 100; RESP 19; TEMP 98
--- NOTE | 2024-09-24 17:30 | P.PAINPG ---
PQRS Measure Charge Sheet Comment: HISTORY OF PRESENT ILLNESS: A 53 yr old male w at side presents today w severe and chronic neck pain x 3 mo secondary to radiculopathy, spondylosis and facet arthropathy without myelopathy for evaluation s/p BL TFESI C6-C7 #2. Pt states he experienced 60 % pain relief x 4 wks s/p procedure. Pt states pain level is provoked at 4 /10 in intensity, constant, localized in the lower cervical spine, predominantly axial, dull in character w occasional shooting pain towards the hands. Pain is provoked by laying supine. Pain is alleviated by PT x 6 wks which ended in March 2024, chiropractic treatments monthly x 6 mo which he is currently in, heat, medications, repositioning and rest. Interventional procedures include BL TFESI C6-C7 x2 Medications include Tyl REVIEW OF ORGAN SYSTEMS: CONSTITUTIONAL: No fevers or chills. No recent weight loss. NEUROLOGICAL: + numbness and tingling along the distal extremities. No seizure disorders or headaches. MUSCULOSKELETAL: + pain PSYCHIATRIC: Denies current depression or suicidal thoughts. Physical Examinations : Constitutional : Cooperative , not in acute distress . Neurologic : Cranial nerve II to XII intact. No focal neurological deficits. Psychiatric : alert & oriented x 3. Matching mood & appropriate affect. Judgment & insight intact. Musculoskeletal : Cervical Spine Motor strength in the deltoid and biceps: Normal right side. Normal Left side Motor strength biceps and the wrist extensors: Normal right side . Normal left side Motor strength in the triceps muscle: Normal right side. Normal left side Deep tendon reflexes: Normal at the biceps. Normal at Brachioradialis. Normal at triceps Vertebral body tenderness to deep palpation over Cervical facet loading test: positive bilaterally Spurling test: positive bilaterally Neck distraction test: positive bilate rally Yossi sign: positive bilaterally Lumbar spine Motor strength lower extremities ,thigh and legs 5/5 Right side , 5/5 Left side Deep tendon reflexes : Normal Knee Jerk. Normal Ankle Jerk Vertebral body tenderness over C6 Cunningham Test positive L > R C6-C7 Lumbar facet Loading Test: positive Right / positive Left Range of motion of the lumbar spine Flexion 30 degrees, extension 10 degrees Straight Leg Raise test: Left/ Right positive at degree Fer test: positive right / positive left. Severe tenderness over the Sacroiliac joint on the Right / Left sides Gaenslen test: positive bilaterally Seated flexion test: positive bilaterally. Sacral spine : Severe tenderness over the Sacroiliac joint: right side / left side Range of motion: Flexion of the lumbar spine <60 degrees Range of motion: Extension of the lumbar spine <20 degrees Gaenslen's Test positive Fer test: positive right side / left side Thigh Thrust Test Sacral Thrust Test Imaging: MRI non contrast of the cervical spine from 12/14/2023 reviewed Assessment/ Plan : Cervical radiculopathy Will mange residual pain and may RTC on an as needed basis. All questions answered. I have spent greater than 30 minutes on patient care today. Dr Navarro was available by phone for the evaluation of this patient. The time was used to review the medical records including relevant urine studies and Prescription history (MAPs), review of the available imaging, evaluation and examination of the patient, coordination of care with the medical staff and if applicable referring physicians, as well as creation of the medical record PQRS Narrative: Smoking Status Never smoker Hx Alcohol Use (MH) No Home Medications: Ambulatory Orders Topiramate [Topamax] 50 mg PO HS 09/19/19 HYDROcodone/APAP 5-325MG [[place] 5-325] 1 tab PO Q6HR PRN #18 tab 02/19/22 Controlled Substance Measures - Controlled Substance Measures Is patient prescribed a controlled substance at discharge?: No
== END ==
LOC: PNWHC3 10:58
PROVIDERS: ATTEND Specialist
DX: M54.12 Radiculopathy, cervical region (principal); M47.816 Spondylosis without myelopathy or radiculopathy, lumbar region
CPT/HCPCS: 99211